=== PATIENT | female | born 1945 | race Caucasian/White ===

== ENCOUNTER → 2018-10-10 07:33 | Outpatient (CLI) | payer MEDICARE, OTHER, SELFPAY ==
--- NOTE | 2018-10-10 06:59 | BI_ITS ---
MAMMOGRAPHY - BILATERAL SCREENING REASON FOR EXAM: Female, 73 years old. Routine annual screening examination. PERTINENT HISTORY: Non-contributory. Remote left stereotactic breast biopsy. TECHNIQUE: Digital bilateral breast [place] (3D mammographic acquisition) in the CC and MLO projections. 2-D mediolateral oblique (MLO) and craniocaudad (CC) views of both breasts were obtained. CAD: Full Field Digital Mammography with Computer Added Detection was performed. COMPARISON: Comparison is made with prior study dated March 30, 2017 and September 11, 2015. FINDINGS: Breast Composition: The breasts are almost entirely fatty. There are no dominant masses or suspicious calcifications. Stable appearance of the small bilateral axillary lymph nodes. 2 tissue clip markers are seen in the upper mid and medial portion of the left breast. These are unchanged. No other significant abnormalities are identified. There has been no significant change since the prior study. BI/SCREENING MAMM (CAD), BILAT IMPRESSION: Stable bilateral screening mammogram. Yearly follow-up mammogram recommended. (A) ASSESSMENT CATEGORY: BIRADS Category 2: Benign. A letter regarding these results will be sent to the patient by the facility within 30 days. Approximately 10% of breast cancers are not detected by mammography. A normal mammogram should not delay biopsy of a clinically suspicious abnormality. [id number] Electronically Signed: Lewis Odonnell MD at 14:27 EST Tel [phone], Service support ,
== END ==
PROVIDERS: Family Provider Nurse Practitioner; PCP Nurse Practitioner; Referring Provider Nurse Practitioner; Visit Provider Nurse Practitioner
DX: Z12.31 Encounter for screening mammogram for malignant neoplasm of breast (principal)
CPT/HCPCS: 77063; 77067

== ENCOUNTER 2019-05-14 09:00 | Outpatient (RCR) | payer MEDICARE, OTHER, SELFPAY ==
--- NOTE | 2019-04-05 07:41 | HP.PTEVAL ---
Patient's Visit Information MICHAEL GLYNN is a 73 year old F referred to Physical Therapy by Himanshu Medina MD with a diagnosis of L knee OA. Date of Evaluation: 04/05/19 Physical Therapist: Micheal Murphy DPT - Visit Plan Frequency: 2x /Week Duration: 4 Weeks Plan: Start with general mobility, quad/HS/glute med/glute max strengthening in aquatic setting. Add in isometrics and exercises that are not pain to HEP. Add in knee extension exercises/stretching as well. Progress as patient tolerates. Pt. return to doctor on April 26. - Subjective Findings: Pt. is here today for her initial evaluation with diagnosis of L knee OA. Pt. reports she is planning to have surgery on her L knee, but needs to to therapy first to get stronger and gain increased motion prior. Pt. uses cane mostly, but occassionally no AD in home. Pt. denies N/T in her L leg. Pt. has been some light exercises on her L knee that she had done on her R knee post OP. PT. - Pain L knee Pain Intensity (Out of 10): 2 Pain Intensity Range: 2, 6 - Objective POSTURE: Pt. has increased knee valgus formation on L knee. PALPATION: Pt. has increased tenderness along lateral aspect of joint line and anterior/lateral aspects. NEURO: Normal sensation of bilateral Les. Pt. has normal DTR of bilateral achilles and patellar DTR. ROM: L Knee- 0-8-89deg. Pt. has increase pain with end ranges of motions in both directions. Pt. has tight B HS as well. MMT: RLE- 4+/5 throughout. LLE- ankle 5/5 throughout; knee- ext 4-/5 increase NW, flexion 4/5 NE; hip- flexion 4-/5 increase nW, abd 4-/5, ext 4-/5. Core strength- poor. GAIT: Pt. ambulates with SPC with proper pattern, but has decreased L TKE during stance phase. Pt. has antalgic pattern during L stance phase, increased valgus positioning as well. STAIRS: Pt. completes with antalgic pattern heavy use of AD and step to pattern, loading RLE only. - Goals Goal 1:: Pt. to be I with HEP. Goal Time Frame: 4-6 Weeks Goal 2:: Pt. to have increased ROM of L knee to 0-0-100deg without increase in symptoms. Goal Time Frame: 4-6 Weeks Goal 3:: Pt. to have increased strength of LLE by 1/2 grade of all effected musculature. Goal Time Frame: 4-6 Weeks Goal 4:: Pt. to ambulate with improved (more normalized) gait pattern with SPC with 0-1/10 pain. Goal Time Frame: 4-6 Weeks Goal 5:: Pt. to complete all ADLs without limitation or increase in symptoms. Goal Time Frame: 4-6 Weeks - Rehabilitation Potential Physical Therapy Diagnosis: Pt. has signs and symptoms consistent with L knee OA. Pt. has decreased ROM and strength which is effecting her general mobility and gait. Pt. would benefit from PT in aquatic setting to increase toelrance to general mobility and increase ROM/strength of her LLE. Rehabilitation Potential: Fair - Anticipated Interventions Patient/Client Instruction: Educate patient on: Condition, Plan of Care, Risk Factors, Benefits of Fitness Program For the Purpose of:: To facilitate caregiver knowledge, To improve self management, To prevent re-injury, To improve ability to perform tasks related to life management, To improve tolerance to ADL's Therapeutic Exercise to Include: Strength training, Power training, Endurance training, Postural training, Flexibilty training, Gait and locomotor training, In an aquatic setting, Passive ROM, Active ROM, Dynamic Lumbar Stabilization For the Purpose of:: To decrease pain, To decrease swelling/inflammation, To increase ROM, To improve nutrient delivery to tissue, To increase oxygenation perfusion, To improve muscle performance and motor function, To improve gait and locomotor functions, To improve health of tissue, To decrease soft tissue restriction, To increase flexibility/ROM Thank you for the opportunity to evaluate your patient. For Medicare and Medicare HMO plans, please review the plan of care and approve it. It will need to be FAXED BACK to us at [phone] for Medicare purposes. For Medicare only, by signing this I certify the plan of care. Please let me know if there are questions or concerns regarding this plan of care. Physician Signature: Date:
--- NOTE | 2019-05-14 10:48 | HP.PTDCSUM ---
HP - PT D/C Summary It has been my pleasure to treat MICHAEL GLYNN under orders from Himanshu Medina MD, for the diagnosis of L knee OA for a total of 7 visit(s). Discharge Date: 05/14/19 Please see the following information for a summary of their discharge status. - Subjective Subjective: Pt. reports having some relief with aquatic therapy, but still has increased pain. Pt. reports being compliant with her HEP. Pt. continues have increased L knee pain after sitting for long period of time. Pt. is to follow up with physician next week. - Pain L knee Pain Intensity (Out of 10): 0 - Overall Improvement % Improvement: 35 - Objective Objective/Function: ROM: L knee 0-0-98deg. MMT- 5-/5 throughout knee, abd hip 4/5, flexion 4/5. GAIT: Pt. ambulates with cane with increased antalgic patttern, increased lateral hip translation during stance phase. STAIRS: Pt. completed with step to pattern, loading RLE. Pt. has increased lateral translation with descending, descenidng worse than ascending. - Goals Goal 1:: Pt. to be I with HEP. Goal Progress: Goal Met Goal 2:: Pt. to have increased ROM of L knee to 0-0-100deg without increase in symptoms. Goal Progress: Progressing Goal 3:: Pt. to have increased strength of LLE by 1/2 grade of all effected musculature. Goal Progress: Progressing Goal 4:: Pt. to ambulate with improved (more normalized) gait pattern with SPC with 0-1/10 pain. Goal Progress: Progressing Goal 5:: Pt. to complete all ADLs without limitation or increase in symptoms. Goal Progress: Progressing - Plan Plan: Add (smaller ROM with hand rail) lunges next. - D/C Information Discharge Comments: Pt. was seen in PT for aquatic therapy for her L knee pain. Pt. has L knee OA with limited ROM, flexion worse than extension. Pt. has improved ROM and strength, but contiunes to have increased pain and stiffness after sitting/walking for longer periods. Pt. has a HEP with exercises for mobility/strength. Pt. will be DC to physician at this point in time. If there are questions or concerns regarding this patient's physical therapy, please feel free to call me at [phone]. Thank you for the referral of this patient. Sincerely, NYLA HaiderT
== END 2019-05-14 19:00 | disposition home or self-care (01) ==
LOC: PT 09:00
PROVIDERS: Family Provider Nurse Practitioner; PCP Nurse Practitioner; Referring Provider Specialist; Visit Provider Specialist
DX: M17.12 Unilateral primary osteoarthritis, left knee (principal)
CPT/HCPCS: 97110; 97113; 97161; 97530

== ENCOUNTER → 2019-06-06 10:03 | Outpatient (CLI) | payer MEDICARE, OTHER, SELFPAY ==
[2019-06-06 12:29] LABS: Albumin, Serum 3.5 g/dL (3.2-5.0); Anion Gap 9 (5-15); BUN 10 mg/dL (7-18); BUN/Creat Ratio 12.4 RATIO (10-20); Chloride 109 mmol/L (98-107); EST Glomerular Filtration Rate 75 mL/min (>60); Est Glom Filt Rate - Afr Amer 90 mL/min (>60); Glucose 88 mg/dL (74-106); Potassium 3.7 mmol/L (3.5-5.1); Sodium Level 145 mmol/L (136-145)
[2019-06-06 12:43] LABS: Absolute Neutrophil Count 3.1 X10^3/uL (2.0-7.7); Basophil% 1.7 % (0-1); Eosinophil# 0.29 X10^3/uL; Eosinophils% 4.9 % (0-5); Hematocrit 41.5 % (37-47); Hemoglobin 13.1 g/dL (12.0-15.0); Lymphocyte % 28.8 % (19-41); Mean Corp Hgb Conc 31.6 g/dL (32-36); Mean Corpuscular Hgb 29.1 pg (27.0-32.0); Mean Corpuscular Volume 92.2 fL (81-99); Monocyte% 11.9 % (0-10); NRBC Flagged by Analyzer 0 % (0-5); Neutrophil # 3.09 X10^3/uL (2.7-7.7); Neutrophil % 52.4 % (47-70); Platelet Count 231 K/mm3 (150-450); RBC Distribution Width CV 13.4 % (11.6-14.6); White Blood Count 5.9 K/mm3 (4.4-11.0)
== END ==
PROVIDERS: Family Provider Nurse Practitioner; PCP Nurse Practitioner; Referring Provider Specialist; Visit Provider Specialist
DX: M17.12 Unilateral primary osteoarthritis, left knee (principal)
CPT/HCPCS: 36415; 80048; 82040; 85025

== ENCOUNTER 2019-06-09 04:37 | Emergency (ER) | payer MEDICARE, OTHER, SELFPAY ==
[2019-06-09 04:38] VITALS: BP 159/74; PULSE 72; RESP 18; TEMP 36.9; O2SAT 95; BMI 43.4
--- NOTE | 2019-06-09 04:56 | RAD_ITS ---
STUDY: X-RAY - LEFT KNEE REASON FOR EXAM: Female, 73 years old. Severe left knee pain TECHNIQUE: 4 view(s) of the knee. COMPARISON: None. FINDINGS: Normal visualized distal femur. Normal visualized proximal tibia and fibula. Normal proximal tibiofibular articulation. There is severe degenerative arthrosis of the medial femorotibial compartment with severe joint space narrowing. There is mild degenerative arthrosis of the lateral femorotibial compartment. There is mild degenerative arthrosis of the patellofemoral articulation. The soft tissue structures are unremarkable. RAD/Knee 4 or More Views IMPRESSION: Degenerative arthrosis. Electronically Signed: Meera Garsia, at 6:51 EDT Tel , Service support ,
--- NOTE | 2019-06-09 05:05 | ED.DCSUM_ITS ---
History of Present Illness Chief Complaint: Lower Extremity Injury Informant: Patient Onset: Today - past several hours Context: Sudden Onset - when got out of bed and put weight on her left knee Timing: Continuous Quality of Pain: Aching Location: left knee and down into prox 1/3 of be[place] Current Severity: Severe Maximum Severity: Severe Worsened by: bending or weight bearing Relieved by: remaining still Associated Symptoms: Negative for: Parasthesia, Weakness Narrative: Patient has had chronic pain and arthritis in her left knee and actually is scheduled for a knee replacement to be done 3 days from now. This morning she had acute severe pain on top of this and states now she can barely move her knee and not put any weight on it. She did not injure it. She denies any fevers or systemic symptoms. No swelling of her knee or ankle/leg. She is not diabetic. She is taking no immunocompromising medications right now. She took some Tylenol prior to arrival, it did not help. No known history of gout. - Past Medical History (1) Osteoarthritis Status: Chronic Past Medical History - Allergies and Home Meds Allergies/Adverse Reactions: Allergies No Known Allergies Allergy (Verified 06/09/19 04:42) Primary Care Physician: Hallie Pacheco NP-C [Primary Care Provider] - Lives: Spouse/ Significant Other Smoking Status: Former smoker Drugs: None Review of Systems General: Denies: Chills, Fever Cardiovascular: Denies: Chest pain, Palpitations Respiratory: Denies: Dyspnea, Dyspnea on exertion Gastrointestinal: Denies: Nausea, Vomiting Musculoskeletal: Reports: Extremity Pain. Denies: Neck pain, Swelling Skin: Denies: Rash, Abscess, Wounds Neurological: Denies: Headache, Weakness, Numbness Physical Exam Vital Signs/Narrative: Vital Signs Temp Pulse Resp BP Pulse Ox 06/09/19 04:38 98.4 F 72 18 159/74 H 95 Inital Vital Signs reviewed: Yes - Extremity Exam Left Knee: Limited ROM - Significant pain with any passive or active range of motion. Unable to fully straighten or fully bend. No erythema. Obesity limits the exam of this joint. Possibly slightly more erythematous than surrounding areas. No palpable effusion. General: Well nourished, Well developed, Obese Head: Normocephalic, Atraumatic Skin: Normal color - Without left lower extremity erythema, No rash, No Trauma Neurological: Alert, Oriented x3, Cranial nerves II-XII grossly intact, Normal Strength, Normal Sensation Psychological: Normal affect, Normal Mood Diagnostic/Tx/Re-eval 06/09/19 04:56 Knee 4 or More Views [RAD] Stat Laboratory Results 06/09/19 06/09/19 05:18 05:18 WBC 5.7 RBC 4.42 Hgb 13.1 Hct 40.8 MCV 92.3 MCH 29.6 MCHC 32.1 RDW Std Deviation 45.4 H RDW Coeff of Richard 13.2 Plt Count 200 MPV 9.9 Immature Gran % (Auto) 0.200 Neut % (Auto) 54.9 Lymph % (Auto) 25.9 [place] % (Auto) 11.8 H Eos % (Auto) 6.0 H Baso % (Auto) 1.2 H Absolute Neuts (auto) 3.1 Absolute Lymphs (auto) 1.47 Absolute Nucleated RBC 0.00 Nucleated RBC % 0 ESR 16 C-React Prot Ext Range 7.24 H Knee x-ray 4 views read by myself, radiologist read is pending: Arthritic chronic changes, severe in the medial compartment, no acute bony abnormality or dislocation. - Medical Decision Making As I discussed with patient since she is so resistant to moving her knee, I recommend an arthrocentesis to rule out worst-case scenario such as septic arthritis, crystal induced arthritis, hemarthrosis. She is agreeable. She tolerated procedure well but there was a droplet of straw-colored fluid with a positive string sign. I am unable to run any tests other than to plate it for a culture which we did. However given that, I am at a very low suspicion of any of the above possibilities. Will place her on some Percocet which has worked well for this in the past, she has taken it very rarely and not recently, and she is encouraged to return for any systemic symptoms or worsening. She is comfortable with that plan. Procedures Procedure(s): Left knee arthrocentesis -- with the patient's knee in full extension, after prepping at the lateral aspect of the anterior knee with isopropanol, 2 cc of plain 1% lidocaine were placed as a wheal beneath the skin, and down to the synovial capsule. The area was prepped then with chlorhexidine, and an 18-gauge needle was inserted. Only a scant droplet of straw-colored fluid with a positive string sign was able to be aspirated, even with pressure placed over the suprapatellar pouch. ED Disposition - Plan for ED Patient: Disposition: Home or Assisted Living Diagnosis: Localized osteoarthritis of left knee, Acute pain of left knee Instructions: KNEE PAIN, Uncertain Cause Prescriptions: Oxycodone HCl/Acetaminophen [Percocet 5/325] 1 tab PO Q4H PRN PRN 3 Days #15 tab PRN Reason: Pain Prescription Printed Referrals: Orthopedic, your [Other] (as scheduled)
[2019-06-09] MEDS: Ondansetron ODT 4 MG Tablet 8 MG PO (05:11)
[2019-06-09] MEDS: Morphine 4 MG/ML Syringe IM (05:12)
[2019-06-09 05:25] LABS: Absolute Lymphocyte Count 1.47 X10^3/uL (0.83-4.51); Absolute Neutrophil Count 3.1 X10^3/uL (2.0-7.7); Basophil# 0.07 X10^3/uL; Basophil% 1.2 % (0-1); Eosinophil# 0.34 X10^3/uL; Hematocrit 40.8 % (37-47); Hemoglobin 13.1 g/dL (12.0-15.0); Lymphocyte # 1.47 X10^3/ul (4.0); Lymphocyte % 25.9 % (19-41); Mean Corp Hgb Conc 32.1 g/dL (32-36); Mean Corpuscular Hgb 29.6 pg (27.0-32.0); Mean Corpuscular Volume 92.3 fL (81-99); Mean Platelet Vol. 9.9 fl (6.2-12.0); Monocyte# 0.67 X10^3/uL; Monocyte% 11.8 % (0-10); NRBC Flagged by Analyzer 0 % (0-5); Neutrophil # 3.12 X10^3/uL (2.7-7.7); Neutrophil % 54.9 % (47-70); Platelet Count 200 K/mm3 (150-450); RBC Distribution Width CV 13.2 % (11.6-14.6); RBC Distribution Width SD 45.4 fl (35.1-43.9); Red Blood Count 4.42 M/mm3 (4.2-5.4); White Blood Count 5.7 K/mm3 (4.4-11.0)
[2019-06-09 05:32] LABS: Erythrocyte Sedimentation Rate 16 mm/hr (0-30)
[2019-06-09 05:40] LABS: CRP 7.24 mg/L (0.0-3.0)
[2019-06-09] MEDS: oxyCODONE 5 MG Tablet PO (06:37)
[2019-06-09 06:40] VITALS: BP 139/88; PULSE 62; RESP 18; O2SAT 96
== END 2019-06-09 06:44 | disposition home or self-care (01) ==
PROVIDERS: Emergency Provider Emergency Medicine; Family Provider Nurse Practitioner; PCP Nurse Practitioner
DX: M17.12 Unilateral primary osteoarthritis, left knee (principal); G89.29 Other chronic pain; E66.9 Obesity, unspecified; Z87.891 Personal history of nicotine dependence
CPT/HCPCS: 20610; 36415; 73564; 85025; 85652; 86140; 87070; 87075; 87205; 96372; 99283

== ENCOUNTER → 2019-12-11 12:29 | Outpatient (CLI) | payer MEDICARE, OTHER, SELFPAY ==
--- NOTE | 2019-12-11 12:32 | CDU_ITS ---
Reason For Study: carotid stenosis Rt. Velocities/BP Lt. Velocities/BP Prox CCA 83.9/10.8 cm/sec. Prox CCA 103.4/22.6 cm/sec. Mid CCA 66.9/16.0 cm/sec. Mid CCA 66.9/14.7 cm/sec. Dist CCA 64.3/14.7 cm/sec. Dist CCA 59.1/17.3 cm/sec. Prox ICA 64.3/13.4 cm/sec. Prox ICA 55.8/17.8 cm/sec. Mid ICA 59.1/14.7 cm/sec. Mid ICA 66.5/18.8 cm/sec. Dist ICA 91.7/30.4 cm/sec. Dist ICA 99.5/33.0 cm/sec. Rt. ICA/CCA = 1.4. Lt. ICA/CCA = 1.5. Prox ECA 74.7/8.2 cm/sec. Prox ECA 49.9/8.2 cm/sec. Rt. Vert. 43.4/16.0 cm/sec. Lt. Vert. 48.6/12.1 cm/sec. Right Extracranial There is intimal thickening but no significant atherosclerotic plaque noted in the right common carotid artery. There is intimal thickening but no significant atherosclerotic plaque noted in the right internal carotid artery. There is intimal thickening but no significant atherosclerotic plaque noted in the right external carotid artery. Antegrade flow is noted in the right vertebral artery. There is intimal thickening but no significant atherosclerotic plaque noted in the right bulb. Left Extracranial There is intimal thickening but no significant atherosclerotic plaque noted in the left common carotid artery. There is heterogeneous, irregular atherosclerotic plaque noted in the left internal carotid artery. There is intimal thickening but no significant atherosclerotic plaque noted in the left external carotid artery. Antegrade flow is noted in the left vertebral artery. There is heterogeneous, irregular atherosclerotic plaque noted in the left bulb. Procedure Carotid Duplex 15889. The exam was diagnostic. Exam performed in department. Interpretation Summary No significant atherosclerotic plaque or stenosis noted in the right internal carotid artery. Mild (<50%) stenosis left extracranial internal carotid. Flow within the vertebral arteries is antegrade bilaterally. Heterogeneous, irregular atherosclerotic plaque is noted in the left carotid bulb, which does not appear to be hemodynamically significant. Ordering Physician: Hallie Pacheco Performed By: Stephan Howell RVT
--- NOTE | 2019-12-11 13:15 | BI_ITS ---
MAMMOGRAPHY - BILATERAL SCREENING REASON FOR EXAM: Female, 74 years old. Routine annual screening examination. PERTINENT HISTORY: Non-contributory. Prior left stereotactic breast biopsy. TECHNIQUE: Digital bilateral breast anh (3D mammographic acquisition) in the CC and MLO projections. 2-D mediolateral oblique (MLO) and craniocaudad (CC) views of both breasts were obtained. CAD: Full Field Digital Mammography with Computer Added Detection was performed. COMPARISON: Comparison is made with prior examination dated October 10, 2018. FINDINGS: Breast Composition: There are scattered areas of fibroglandular density. There are no dominant masses or suspicious calcifications. Stable benign-appearing bilateral axillary lymph nodes. 2 tissue markers are once again seen in the upper mid and medial portion of the left breast. No other significant abnormalities are identified. There has been no significant change since the prior study. BI/SCREEN MAMM (CAD) W/ANH BILAT IMPRESSION: Stable bilateral screening mammogram. Yearly follow-up mammogram recommended. (A) ASSESSMENT CATEGORY: BIRADS Category 2: Benign. A letter regarding these results will be sent to the patient by the facility within 30 days. Approximately 10% of breast cancers are not detected by mammography. A normal mammogram should not delay biopsy of a clinically suspicious abnormality. [id number] Electronically Signed: Lewis Odonnell, at 15:16 EST , Service support ,
--- NOTE | 2019-12-11 13:23 | BD_ITS ---
STUDY: DUAL ENERGY X-RAY ABSORPTIOMETRY / DXA REASON FOR EXAM: Female, 74 years old. 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 COMPARISON: Comparison is made with prior study dated March 30, 2017. FINDINGS: Lumbar Spine (L1-L4): g/cm2 (1.159) / T-score (0.1) / Z-score (1.6) Findings are suggestive of normal bone density with a low fracture risk. Left Femur Total: g/cm2 (0.880) / T-score (-1.0) / Z-score (0.6) Left Femoral Neck: g/cm2 (0.825) / T-score (-1.5) / Z-score (0.3) Right Femur Total: g/cm2 (0.972) / T-score (0.3) / Z-score (1.3) Right Femoral Neck: g/cm2 (0.904) / T-score (-1.0) / Z-score (0.8) The T-Scores on the most recent prior examination were: Lumbar Spine (L1-L4): There has been worsening of bone density since the previous examination. Left Femur Total: which represents a worsening of 9.6%. Right Femur Total: which represents a worsening of 5.1%. BD/Dexa Bone Density Study IMPRESSION: The patient is considered osteopenic as outlined below according to World Levy Organization (WHO) criteria with a low fracture risk. There has been worsening of bone density since the previous examination. Reference Information: The T-score is the number of standard deviations above or below the standard which is normal for young adults at their peak bone mineral density. The World Health Organization (WHO) interprets the T-scores as follows: Above -1 Normal bone density Between -1 and -2.5 Osteopenia Equal to / or below -2.5 Osteoporosis As a practical clinical guideline, osteopenia may be graded as follows: Mild -1 through -1.5 Moderate -1.6 through -2.0 Severe -2.1 through -2.4 The Z-score is the number of standard deviations above or below age-matched controls. A Z-score of less than -1.5 would be considered abnormal. References: 1. NIH Osteoporosis and Related Bone Diseases http://www.osteo.org 2. International Society for Clinical Densitometry http://www.iscd.org 3. National Osteoporosis Foundation http://www.nof.org Electronically Signed: Lewis Odonnell, at 14:10 EST , Service support ,
== END ==
PROVIDERS: Family Provider Nurse Practitioner; PCP Nurse Practitioner; Referring Provider Nurse Practitioner; Visit Provider Nurse Practitioner
DX: I65.23 Occlusion and stenosis of bilateral carotid arteries (principal); Z12.31 Encounter for screening mammogram for malignant neoplasm of breast; Z78.0 Asymptomatic menopausal state
CPT/HCPCS: 77063; 77067; 77080; 93880

== ENCOUNTER → 2020-07-23 21:22 | Outpatient (CLI) | payer MEDICARE, OTHER, SELFPAY ==
[2020-06-16 07:04] VITALS: BMI 47.5
== END ==
PROVIDERS: PCP Nurse Practitioner; Referring Provider Internal Medicine Critical Care Medicine; Visit Provider Internal Medicine Critical Care Medicine
DX: G47.33 Obstructive sleep apnea (adult) (pediatric) (principal)
CPT/HCPCS: 95811

== ENCOUNTER → 2022-07-02 | Outpatient (CLI) | payer MEDICARE, SELFPAY ==
--- NOTE | 2022-07-02 08:31 | BI_ITS ---
MAMMOGRAPHY - BILATERAL SCREENING REASON FOR EXAM: Female, 76 years old. Routine annual screening examination. PERTINENT HISTORY: Prior left stereotactic breast biopsy. No personal history of breast cancer. TECHNIQUE: Digital bilateral breast anh (3D mammographic acquisition) in the CC and MLO projections. 2-D mediolateral oblique (MLO) and craniocaudad (CC) views of both breasts were obtained. CAD: Full Field Digital Mammography with Computer Added Detection was performed. COMPARISON: Screening mammogram from 12/11/2019, 10/10/2018. FINDINGS: Breast Composition: There are scattered areas of fibroglandular density. There are no dominant masses or suspicious calcifications. Stable benign-appearing bilateral axillary lymph nodes. Stable left breast biopsy markers. No other significant abnormalities are identified. There has been no significant change since the prior study. BI/SCRN MAMM (CAD)W/ANH BILAT IMPRESSION: Stable bilateral screening mammogram. Yearly follow-up mammogram recommended. (A) ASSESSMENT CATEGORY: BIRADS Category 2: Benign. A letter regarding these results will be sent to the patient by the facility within 30 days. Approximately 10% of breast cancers are not detected by mammography. A normal mammogram should not delay biopsy of a clinically suspicious abnormality. Electronically Signed: Hossein Ag, at 13:57 EDT ,
== END | disposition home or self-care (01) ==
LOC: OPBI 08:30
PROVIDERS: PCP Internal Medicine; Visit Provider Internal Medicine
DX: Z12.31 Encounter for screening mammogram for malignant neoplasm of breast (principal)
CPT/HCPCS: 77063; 77067

== ENCOUNTER → 2023-02-17 | Outpatient (CLI) | payer MEDICARE, SELFPAY ==
--- NOTE | 2023-02-17 09:43 | CDU_ITS ---
Reason For Study: Stenosis Rt. Velocities/BP Lt. Velocities/BP Prox CCA 75.9/18.2 cm/sec. Prox CCA 79.6/14.5 cm/sec. Mid CCA 77.8/17.3 cm/sec. Mid CCA 74.9/17.3 cm/sec. Dist CCA 60.7/15.4 cm/sec. Dist CCA 71.1/19.2 cm/sec. Prox ICA 58.9/9.7 cm/sec. Prox ICA 47/13.3 cm/sec. Mid ICA 63.6/17.3 cm/sec. Mid ICA 76.8/21.1 cm/sec. Dist ICA 74.9/23 cm/sec. Dist ICA 67.4/21.1 cm/sec. Rt. ICA/CCA = 0.99. Lt. ICA/CCA = 1.03. Prox ECA 73/8.8 cm/sec. Prox ECA 70.2/9.7 cm/sec. Rt. Vert. 49.4/12.6 cm/sec. Lt. Vert. 33.3/8.8 cm/sec. Right Extracranial There is intimal thickening but no significant atherosclerotic plaque noted in the right common carotid artery. There is intimal thickening but no significant atherosclerotic plaque noted in the right internal carotid artery. There is intimal thickening but no significant atherosclerotic plaque noted in the right external carotid artery. Antegrade flow is noted in the right vertebral artery. Left Extracranial There is intimal thickening but no significant atherosclerotic plaque noted in the left common carotid artery. There is heterogeneous, irregular atherosclerotic plaque noted in the left internal carotid artery. There is intimal thickening but no significant atherosclerotic plaque noted in the left external carotid artery. Antegrade flow is noted in the left vertebral artery. Procedure Carotid Duplex [id number]. This is a Carotid Duplex examination using B-mode, color flow and specral Doppler. Exam performed in department. VL/Carotid Duplex Ultrasound Interpretation Summary Intimal thickening at the proximal right internal carotid artery with less than 50% stenosis Less than 50% stenosis right external carotid artery Minimal irregular plaque at the proximal left internal carotid artery with less than 50% stenosis Less than 50% stenosis left external carotid artery Patent and antegrade vertebral arteries bilaterally Ordering Physician: Otilia Horowitz Referring Physician: Otilia Horowitz Performed By: Doretha Dior RVT
== END | disposition home or self-care (01) ==
LOC: CVS 09:43
PROVIDERS: PCP Internal Medicine; Visit Provider Internal Medicine
DX: I65.22 Occlusion and stenosis of left carotid artery (principal)
CPT/HCPCS: 93880

== ENCOUNTER → 2023-03-01 | Outpatient (CLI) | payer MEDICARE, SELFPAY ==
[2023-03-01 12:39] LABS: Absolute Lymphocyte Count 1.81 X10^3/uL (0.83-4.51); Absolute Neutrophil Count 4.2 X10^3/uL (2.0-7.7); Basophil# 0.09 X10^3/uL; Basophil% 1.3 % (0-1); Eosinophil# 0.36 X10^3/uL; Hematocrit 41.6 % (37-47); Hemoglobin 12.9 g/dL (12.0-15.0); Lymphocyte # 1.81 X10^3/ul (0.83-4.51); Lymphocyte % 25.1 % (19-41); Mean Corpuscular Hgb 29.3 pg (27.0-32.0); Mean Corpuscular Volume 94.3 fL (81-99); Mean Platelet Vol. 10.8 fl (6.2-12.0); Monocyte# 0.73 X10^3/uL; Monocyte% 10.1 % (0-10); NRBC Flagged by Analyzer 0 % (0-5); Neutrophil # 4.19 X10^3/uL (2.7-7.7); Neutrophil % 58.2 % (47-70); Platelet Count 253 K/mm3 (150-450); RBC Distribution Width SD 48.3 fl (35.1-43.9); Red Blood Count 4.41 M/mm3 (4.2-5.4); White Blood Count 7.2 K/mm3 (4.4-11.0)
[2023-03-01 13:06] LABS: ALB/GLOB Ratio 0.9 RATIO (0.9-2.4); AST(SGOT) 26 U/L (15-37); Alanine Aminotransfer ALT/SGPT 36 U/L (13-56); Albumin, Serum 3.5 g/dL (3.2-5.0); Alkaline Phosphatase 69 U/L (45-117); Anion Gap 7 (5-15); BUN 14 mg/dL (7-18); BUN/Creat Ratio 13.5 RATIO (10-20); Chloride 105 mmol/L (98-107); Cholesterol 195 mg/dL (200); Creatinine, Serum 1.04 mg/dL (0.55-1.02); EST Glomerular Filtration Rate 55 mL/min (>60); Est Glom Filt Rate - Afr Amer 66 mL/min (>60); Glucose 102 mg/dL (74-106); High Density Lipoprotein 56 mg/dL; Potassium 3.6 mmol/L (3.5-5.1); Protein, Total 7.5 g/dL (6.4-8.2); Sodium Level 140 mmol/L (136-145); Thyroid Stim Hormone (TSH) 4.16 uIU/mL (0.358-3.74); Triglycerides 97 mg/dL; Very Low Density Lipoprotein 19 mg/dL (5-40)
== END | disposition home or self-care (01) ==
LOC: BIMLAB 08:02
PROVIDERS: PCP Internal Medicine; Referring Provider Internal Medicine; Visit Provider Internal Medicine
DX: I10 Essential (primary) hypertension (principal); F32.1 Major depressive disorder, single episode, moderate; E66.01 Morbid (severe) obesity due to excess calories
CPT/HCPCS: 36415; 80053; 80061; 84443; 85025

== ENCOUNTER 2023-03-15 03:24 | Emergency (ER) | payer MEDICARE, SELFPAY ==
[2023-03-15 03:26] VITALS: BP 155/81; PULSE 79; RESP 16; TEMP 35.9; O2SAT 95; BMI 42.8
--- NOTE | 2023-03-15 03:52 | RAD_ITS ---
EXAM: XR CHEST, 2 VIEWS CLINICAL INDICATION: chest pain chest pain TECHNIQUE: Frontal and lateral views of the chest. This report was created using [employer] report generation technology. COMPARISON: None. FINDINGS: LUNGS AND PLEURAL SPACES: Unremarkable. No consolidation or edema. No pneumothorax. No effusion. HEART: Unremarkable. Cardiac silhouette not enlarged. MEDIASTINUM: Central airways and mediastinal contour are unremarkable. BONES/JOINTS: There are multilevel degenerative changes in the visualized spine. SOFT TISSUES: Unremarkable. RAD/Chest PA and Lateral IMPRESSION: No acute findings in the chest. Electronically Signed: Tomas Briones MD at 4:55 EDT Reading Location ID and State: [facility] / [place] , Service support ,
--- NOTE | 2023-03-15 03:52 | EKG12_ITS ---
Test Reason : CP Blood Pressure : / mmHG Vent. Rate : 085 BPM Atrial Rate : 085 BPM P-R Int : 192 ms QRS Dur : 154 ms QT Int : 426 ms P-R-T Axes : 061 -22 -01 degrees QTc Int : 506 ms Normal sinus rhythm Right bundle branch block Abnormal ECG Confirmed by LIBERTY HECK, CHARISSE ([id number]), make up editor KEITH JEAN ([id number]) on 03/17/2023 9:12:30 AM Referred By: JOSUE Confirmed By:CHARISSE KOENIG MD
[2023-03-15 03:58] LABS: Absolute Lymphocyte Count 3.64 X10^3/uL (0.83-4.51); Absolute Neutrophil Count 4.6 X10^3/uL (2.0-7.7); Basophil# 0.11 X10^3/uL; Basophil% 1.1 % (0-1); Eosinophil# 0.31 X10^3/uL; Eosinophils% 3.2 % (0-5); Hematocrit 42.1 % (37-47); Hemoglobin 13.3 g/dL (12.0-15.0); Lymphocyte # 3.64 X10^3/ul (0.83-4.51); Lymphocyte % 37.7 % (19-41); Mean Corp Hgb Conc 31.6 g/dL (32-36); Mean Corpuscular Hgb 29.4 pg (27.0-32.0); Mean Corpuscular Volume 92.9 fL (81-99); Mean Platelet Vol. 10.8 fl (6.2-12.0); Monocyte# 1.01 X10^3/uL; Monocyte% 10.5 % (0-10); NRBC Flagged by Analyzer 0 % (0-5); Neutrophil # 4.55 X10^3/uL (2.7-7.7); Neutrophil % 47.1 % (47-70); Platelet Count 302 K/mm3 (150-450); RBC Distribution Width CV 13.7 % (11.6-14.6); RBC Distribution Width SD 46.9 fl (35.1-43.9); Red Blood Count 4.53 M/mm3 (4.2-5.4); White Blood Count 9.7 K/mm3 (4.4-11.0)
[2023-03-15] MEDS: Ketorolac 15 MG/ML Vial IV (04:01)
[2023-03-15 04:16] LABS: Anion Gap 5 (5-15); BUN 23 mg/dL (7-18); BUN/Creat Ratio 18.7 RATIO (10-20); Calcium,Total 8.6 mg/dL (8.5-10.1); Chloride 102 mmol/L (98-107); Creatinine, Serum 1.23 mg/dL (0.55-1.02); EST Glomerular Filtration Rate 45 mL/min (>60); Est Glom Filt Rate - Afr Amer 55 mL/min (>60); Estimated Creatinine Clearance 32.69 ml/min; Glucose 112 mg/dL (74-106); Magnesium 2.2 mg/dL (1.6-2.6); Potassium 3.2 mmol/L (3.5-5.1); Sodium Level 136 mmol/L (136-145); Troponin-I HS 6 pg/mL (3.0-54.0)
[2023-03-15 04:28] VITALS: PULSE 59; RESP 15; O2SAT 93
--- NOTE | 2023-03-15 05:11 | EX.ED.DYSGE1 ---
HPI History of Present Illness Chief Complaint: Chest Pain Narrative Narrative: Patient is a 77-year-old female with past medical history of hypertension and BASILIA. She states she awoke about 2 hours prior to arrival to use the bathroom and after doing so came back and lay down in bed. She states while resting she would feel a sudden sharp stabbing in the left chest wall that lasted a few seconds and resolve. She states this occurred approximately 6-7 times in an hour which concerned her that this could be cardiac in nature based on her medical history and secondary to this she comes in for evaluation. Upon arrival to the ER patient states that the pain has resolved but she does admit to taking 4 baby aspirin prior to arrival. She denies any excessive activity or recent trauma [facility] Medical History (Updated 03/15/23 @ 06:[address] Colin Huff, ) Hypertension Hypothyroid Insomnia BASILIA (obstructive sleep apnea) Osteoarthritis Home Medications levothyroxine 112 mcg capsule 112 mcg PO DAILY 06/16/20 [History Last Taken Unknown] hydrochlorothiazide 25 mg tablet 25 mg PO DAILY #90 tabs 09/09/22 [Rx Last Taken Unknown] blood pressure test kit-large #1 ea 09/15/22 [Rx Last Taken Unknown] omeprazole 40 mg capsule,delayed release 40 mg PO DAILY #90 caps 12/15/22 [Rx Last Taken Unknown] hydroxyzine HCl 25 mg tablet 12.5 mg PO QHS #15 tabs 02/09/23 [Rx Last Taken Unknown] losartan 100 mg tablet See Rx Instructions .Route .COMPLEX #90 tabs 02/14/23 [Rx Last Taken Unknown] escitalopram oxalate 10 mg tablet (Lexapro) 10 mg PO DAILY 03/15/23 [History Last Taken Unknown] Allergy/AdvReac Type Severity Reaction Status Date / Time No Known Allergies Allergy Verified 03/15/23 03:30 Family History Mother Heart disease Brother Cancer Non-Hodgkin's Lymphoma Surgical History History of hysterectomy History of knee replacement Social History household members: spouse current occupational status: retired 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 Smoking Status: Former smoker quit date: 11/21/11 Tobacco: How many years used: 15 Electronic Cigarette Use: not used alcohol intake: current alcohol intake frequency: holidays/special occasions only details: Occasional wine substance use type: does not use do you feel safe at home: Yes ROS ROS ED Constitutional Constitutional ED: Denies chills or fever(s) ENT ENT ED: Denies sore throat Cardiovascular Cardiovascular: Reports chest pain; Denies palpitations or racing heartbeat Respiratory/Chest Respiratory/Chest: Denies cough or dyspnea Gastrointestinal Gastrointestinal: Denies abdominal pain, diarrhea, nausea or vomiting Genitourinary Genitourinary ED: Denies dysuria Musculoskeletal Musculoskeletal: Denies myalgias Integumentary Denies rash Neurologic Neurologic: Denies headache(s) Hematologic/Lymphatic Hematologic/Lymphatic: Denies easy bleeding or easy bruising EXAM Physical Exam Const Vital Signs: 03/15/23 03:26 03/15/23 04:28 Temperature 96.6 F L Temperature Source Temporal Pulse Rate 79 59 L Respiratory Rate 16 15 Blood Pressure 155/81 H Blood Pressure Mean 105 Pulse Ox 95 93 Oxygen Delivery Method Room Air Room Air Positive well nourished, well developed and obese General Appearance ED: well developed Nutritional Appearance: obese HEENT Reports moist mucous membranes Eyes PERRL and EOMs intact bilaterally General Eye ED: Negative for scleral icterus Neck supple and no JVD Chest Wall Chest Narrative: There is reproducible pain with palpation of the left anterior chest wall intercostal regions 4-6 that patient states is the same pain she was experiencing. There is no bony deformity or crepitus. No overlying erythema or warmth ecchymosis or abrasions Resp normal respiratory effort and clear to auscultation bilaterally Cardio regular rate and regular rhythm Rate: other Other Details: Radial pulses are plus 2 out of 4 bilaterally are equal and symmetric GI normal to inspection, nondistended, normoactive bowel sounds, non-tender, non-distended and no masses GI Narrative: No voluntary guarding or rigidity no pulsatile mass or fluid wave noted Auscultation: normoactive bowel sounds Palpation: soft Extremity normal to inspection Extremity Narrative: No asymmetric edema no pitting edema negative Homans' sign bilaterally Neuro oriented x3 and CN's II-XII intact bilaterally Sensorium / Orientation: alert Psych mental status grossly normal Skin no rashes or lesions noted MDM MDM MDM Narrative Medical decision making narrative: Patient presented to the ER slightly hypertensive but has a past medical history of this. She reported sharp intermittent left-sided chest pain without radiation and there was no nausea vomiting diaphoresis shortness of breath. This is not classic cardiac pain but based on the patient's past medical history she does have risk factors for acute coronary syndrome so basic work-up was obtained. Differential includes acute coronary syndrome pneumothorax or pneumonia musculoskeletal spasm/strain cellulitis/abscess or electrolyte derangement. Patient's initial troponin is 6 going along with a normal sinus rhythm EKG. delta troponin did not change either going against acute coronary syndrome. Chest x-ray shows no acute lung pathology such as pneumonia or pneumothorax or widening of the mediastinum to suggest dissection. Blood work shows no severe electrolyte derangement. Patient was given Toradol and did have resolution of her pain. Therefore at this time as work-up for acute coronary syndrome shows no clinically significant changes concerning for admission she is otherwise safe for discharge History & Record Review Discussion w/independent historian: Patient Lab Data Attestation: I reviewed the patient's lab results. Labs: Laboratory Results - last 24 hr 03/15/23 03/15/23 03/15/23 03:29 03:29 05:30 WBC 9.7 RBC 4.53 Hgb 13.3 Hct 42.1 MCV 92.9 MCH 29.4 MCHC 31.6 L RDW Std Deviation 46.9 H RDW Coeff of Richard 13.7 Plt Count 302 MPV 10.8 Immature Gran % (Auto) 0.400 Neut % (Auto) 47.1 Lymph % (Auto) 37.7 [place] % (Auto) 10.5 H Eos % (Auto) 3.2 Baso % (Auto) 1.1 H Absolute Neuts (auto) 4.6 Absolute Lymphs (auto) 3.64 Nucleated RBC % 0 Sodium 136 Potassium 3.2 L Chloride 102 Carbon Dioxide 29.0 Anion Gap 5 BUN 23 H Creatinine 1.23 H Estim Creat Clear Calc 32.69 Est GFR (MDRD) Af Amer 55 L Est GFR (MDRD) Non-Af 45 L BUN/Creatinine Ratio 18.7 Glucose 112 H Calcium 8.6 Magnesium 2.2 Troponin I High Sens 6 6 Radiography Diagnostic Testing: Clinical Impression(s) from Imaging Studies Chest X-Ray 03/15/23 03:52 IMPRESSION: No acute findings in the chest. Electronically Signed: Tomas Briones MD at 4:55 EDT , Chest x-ray as interpreted by the emergency medicine physician reveals no acute infiltrate pneumothorax or pleural effusion Discharge Plan Triage Chief Complaint: Chest Pain ED Provider: Colin Huff Dx/Rx/DC Orders Clinical Impression: Chest wall pain, Essential hypertension Instructions: ED Chest Pain, Noncardiac Prescriptions: No Action levothyroxine 112 mcg capsule 112 mcg capsule 112 mcg PO DAILY hydrochlorothiazide 25 mg tablet 25 mg PO DAILY Qty: 90 1RF hydroxyzine HCl 25 mg tablet 12.5 mg PO QHS Qty: 15 0RF Rx Instructions: takes 1/2 tablet at HS escitalopram oxalate [Lexapro] 10 mg Tablet 10 mg PO DAILY (DME) blood pressure test kit-large Kit See Rx Instructions .Route Qty: 1 0RF Rx Instructions: As directed omeprazole 40 mg capsule,delayed release(DR/EC) 40 mg PO DAILY Qty: 90 1RF losartan 100 mg tablet See Rx Instructions .ROUTE .COMPLEX Qty: 90 0RF Dose Instruction: Take 1 tablet by mouth once daily Rx Instructions: Take 1 tablet by mouth once daily Primary Care Provider: Otilia Horowitz Referrals: Otilia Horowitz MD [Primary Care Provider] - Activity Restrictions/Additional Instructions: Your work-up today does not show any signs of cardiac damage. Continue all of your medications as previously directed and return to the ER should you have any further concerns Disposition Disposition: Home, Self Care
[2023-03-15 05:53] LABS: Troponin-I HS 6 pg/mL (3.0-54.0)
[2023-03-15 06:26] VITALS: BP 164/90; PULSE 65; RESP 18; O2SAT 94
== END 2023-03-15 06:27 | disposition home or self-care (01) ==
PROVIDERS: Emergency Provider Emergency Medicine; PCP Internal Medicine; Visit Provider Emergency Medicine
DX: R07.89 Other chest pain (principal); I10 Essential (primary) hypertension; G47.33 Obstructive sleep apnea (adult) (pediatric); E66.9 Obesity, unspecified; Z79.899 Other long term (current) drug therapy; Z87.891 Personal history of nicotine dependence
CPT/HCPCS: 71046; 80048; 83735; 84484; 85025; 93005; 99282; A4216

== ENCOUNTER 2023-04-25 07:47 | Day surgery (SDC) | payer MEDICARE, SELFPAY ==
[2023-04-25] VITALS (7 sets, daily range): BP systolic 103–131; BP diastolic 49–89; PULSE 55–61; RESP 16–20; TEMP 36.1–36.6; O2SAT 92–100; BMI 43.0
[2023-04-25] MEDS: Lactated Ringers 1,000 ML 15 ML IV (08:28)
--- NOTE | 2023-04-25 10:58 | OP.PCM_ITS ---
Report of Operation Date of Procedure: 04/25/23
--- NOTE | 2023-04-25 10:58 | PCM.OPRPT ---
Report of Operation Date of Procedure: 04/25/23
--- NOTE | 2023-04-25 11:00 | PCM.OPRPT ---
Report of Operation Date of Procedure: 04/25/23 Pre-Operative Diagnosis: Left CTS Post-Operative Diagnosis: same Surgery/Procedure Performed:: RDTCL Left Description of Surgical Findings:: Report of Operation Date of Procedure: Preoperative Diagnosis: Left Carpal Tunnel Syndrome Postoperative Diagnosis: same Procedure Performed: Left Carpal Tunnel Release Anesthesia: Izaiah Rubio Anesthesiologist: Cm Tamayo M.D. Description of Procedure: With appropriate informed consent, the patient was taken to the operative suite. After the induction of Izaiah block, the left upper extremity was prepared and draped sterilely. Subsequently, a midline longitudinal incision was made in the base of the left palm, in line with the fourth ray with #15 blade scalpel. Hemostasis was perfected with bipolar electrocautery. Scissor dissection was carried down through the subcutaneous tissue to the palmar fascia. A self-retaining retractor was placed. In sequence, the parker fascia, then the deep transverse carpal ligament was divided with the scalpel under direct visualization. Thereafter, the most proximal and distal aspects of the deep transverse carpal ligament were divided with scissors under direct visualization. The wound was copiously irrigated and closed with interrupted sutures of 4-0 nylon. A sterile well-padded dressing and Thaddeus wrap were applied. The tourniquet was released. Excellent blood flow was returned to the left upper extremity. The patient was transferred to the PACU in stable and satisfactory condition. Adolph Hdez DO Surgeon: Adolph Hdez Type of Anesthesia: Izaiah Rubio Anesthesiologist: Cm Tamayo Admtanvir VTE Documentation VTE Present on Admission: No VTE Mechan Device Prophylaxis: SCD's and Thigh High YARI Hose VTE Pharm Prophylaxis ordered?: No Reason prophylaxis not ordered:: Treatment Not Indicated
== END 2023-04-25 12:06 | disposition home or self-care (01) ==
LOC: SDC 07:47 → AC 07:48
PROVIDERS: PCP Internal Medicine; Referring Provider Orthopaedic Surgery; Visit Provider Orthopaedic Surgery
PROC: (CPT 64721; principal; 2023-04-25 09:20)
DX: G56.02 Carpal tunnel syndrome, left upper limb (principal); E66.01 Morbid (severe) obesity due to excess calories; Z68.41 Body mass index [BMI] 40.0-44.9, adult; I45.10 Unspecified right bundle-branch block; I10 Essential (primary) hypertension; E03.9 Hypothyroidism, unspecified; E78.00 Pure hypercholesterolemia, unspecified; Z71.3 Dietary counseling and surveillance; Z79.899 Other long term (current) drug therapy; Z87.891 Personal history of nicotine dependence
CPT/HCPCS: 64721; 01810; J7120; J2405

== ENCOUNTER 2023-05-15 09:38 | Emergency (ER) | payer MEDICARE, SELFPAY ==
[2023-05-15 09:38] VITALS: BP 128/54; PULSE 74; RESP 16; TEMP 35.2; O2SAT 92; BMI 44.6
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
[2023-05-15] MEDS: Ibuprofen 200 MG Tablet 400 MG PO (10:29)
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
[2023-05-15 12:05] VITALS: PULSE 78; RESP 18; O2SAT 98
== END 2023-05-15 12:07 | disposition home or self-care (01) ==
PROVIDERS: Emergency Provider Emergency Medicine; PCP Internal Medicine; Visit Provider Emergency Medicine
DX: S20.20XA Contusion of thorax, unspecified, initial encounter (principal); S10.91XA Abrasion of unspecified part of neck, initial encounter; S50.11XA Contusion of right forearm, initial encounter; S60.012A Contusion of left thumb without damage to nail, initial encounter; S80.02XA Contusion of left knee, initial encounter; E66.9 Obesity, unspecified; V49.40XA Driver injured in collision with unspecified motor vehicles in traffic accident, initial encounter; Z87.891 Personal history of nicotine dependence
CPT/HCPCS: 71046; 73090; 73130; 73564; 99284

== ENCOUNTER → 2023-05-18 | Outpatient (CLI) | payer MEDICARE, SELFPAY ==
[2023-05-18 17:30] LABS: Anion Gap 6 (5-15); BUN 18 mg/dL (7-18); BUN/Creat Ratio 16.8 RATIO (10-20); Chloride 101 mmol/L (98-107); Creatinine, Serum 1.07 mg/dL (0.55-1.02); EST Glomerular Filtration Rate 53 mL/min (>60); Est Glom Filt Rate - Afr Amer 64 mL/min (>60); Glucose 117 mg/dL (74-106); Potassium 3.5 mmol/L (3.5-5.1); Sodium Level 139 mmol/L (136-145); Thyroid Stim Hormone (TSH) 0.35 uIU/mL (0.358-3.74)
== END | disposition home or self-care (01) ==
LOC: BIMLAB 15:49
PROVIDERS: PCP Internal Medicine; Referring Provider Internal Medicine; Visit Provider Internal Medicine
DX: I10 Essential (primary) hypertension (principal); F32.1 Major depressive disorder, single episode, moderate
CPT/HCPCS: 36415; 80048; 84443

== ENCOUNTER → 2023-05-25 | Outpatient (CLI) | payer MEDICARE, SELFPAY ==
--- NOTE | 2023-05-25 13:45 | VDUE_ITS ---
Reason For Study: Right arm swelling Right Proximal Right jugular vein is spontaneous, widely patent, phasic, with no intraluminal echogenicity noted. Right subclavian vein is spontaneous, widely patent, phasic, with no intraluminal echogenicity noted. Right Lower Arm Right radial vein is compressible. Right ulnar vein is compressible. Right Arm Right axillary vein is spontaneous, patent, phasic, competent, compressible and demonstrates augmentation. Right brachial vein is compressible. Right cephalic vein is compressible. Right basilic vein is compressible. Patient Safety Preliminary report given to Dr. Horowitz. VL/Venous Duplex US, Unilateral Interpretation Summary Deep veins of the right upper extremity are patent and compressible segmentally . There is no evidence of deep vein thrombosis. Superficial veins of the right upper extremity are patent and compressible segm entally. There is no evidence of superficial vein thrombosis. Ordering Physician: Otilia Horowitz Referring Physician: Otilia Horowitz Performed By: Doretha Dior RVT ???
== END | disposition home or self-care (01) ==
LOC: CVS 13:45
PROVIDERS: PCP Internal Medicine; Referring Provider Internal Medicine; Visit Provider Internal Medicine
DX: M79.89 Other specified soft tissue disorders (principal)
CPT/HCPCS: 93971